=== PATIENT | female | born 1940 | race Two or more races ===

== ENCOUNTER 2021-07-05 07:24 | Day surgery (SDC) | payer OTHER | END 2021-07-05 13:00 | disposition home or self-care (01) | LOC: AMB-ENDOS 07:24 | PROVIDERS: ATTEND Colon & Rectal Surgery | DX: D12.3 Benign neoplasm of transverse colon (principal); K57.30 Diverticulosis of large intestine without perforation or abscess without bleeding ==

== ENCOUNTER 2021-09-14 09:54 | Emergency (ER) | payer OTHER ==
[~2021-09-14] VITALS: Ht 157.5 cm; Wt 59.0 kg
[~2021-09-14 09:54] MED LIST: ELIQUIS2.5 MG PO; ELIQUIS5 MG; LEVOTHYROXINE25 MCG PO; LEVOTHYROXINE75 MCG; LOSARTAN POTASS25 MG; METFORMIN HCL500 M3 PO; METFORMIN HCL500 M4; PANTOPRAZOLE SO40 MG; SIMVASTATIN40 MG; SIMVASTATIN5 MG PO; VALSARTAN-HCTZ1 EAC1; VALSARTAN160 MG PO
== END 2021-09-14 19:31 | disposition home or self-care (01) ==
LOC: ER 09:54
DX: T81.49XA Infection following a procedure, other surgical site, initial encounter (principal); L03.311 Cellulitis of abdominal wall

== ENCOUNTER 2023-01-16 14:55 | Emergency (ER) | payer OTHER ==
[~2023-01-16] VITALS: Ht 165.1 cm; Wt 77.1 kg
[2023-01-16] MEDS ORDERED: CIPRO500 MG PO (19:59)
[2023-01-16] MEDS ORDERED: PEPCID AC20 MG PO (19:59)
[2023-01-16] MEDS ORDERED: INTESTINEX680 M1 PO (19:59)
== END 2023-01-16 20:09 | disposition home or self-care (01) ==
LOC: ER 14:55
PROVIDERS: General Practice
DX: K52.9 Noninfective gastroenteritis and colitis, unspecified (principal); R10.32 Left lower quadrant pain; E11.9 Type 2 diabetes mellitus without complications; Z79.84 Long term (current) use of oral hypoglycemic drugs; I10 Essential (primary) hypertension; E03.9 Hypothyroidism, unspecified; E78.49 Other hyperlipidemia; Z93.3 Colostomy status; K57.30 Diverticulosis of large intestine without perforation or abscess without bleeding
CPT/HCPCS: 36415; 74177; 96365; 96366; 99284; J1885; J2405; J3490; J7042; Q9965

== ENCOUNTER 2023-02-05 10:57 | Inpatient (IN) | payer OTHER ==
[~2023-02-05] VITALS: Ht 154.9 cm; Wt 77.1 kg
[~2023-02-05 10:57] MED LIST changes: +CIPRO500 MG PO; +INTESTINEX680 M1 PO; +PEPCID AC20 MG PO
[2023-02-09] MEDS ORDERED: AMOX-CLAV 875-1 EAC1 PO (13:46)
[2023-02-09] MEDS ORDERED: NIFEDIPINE ER60 MG PO (13:47)
== END 2023-02-09 14:52 | disposition home or self-care (01) | DRG 392 ==
LOC: ER 10:57 → SEC-K 17:02 → MEDJ 17:02
PROVIDERS: Emergency Medicine; Internal Medicine Infectious Disease; ADMIT Internal Medicine; ATTEND Internal Medicine
PROC: BW21ZZZ Computerized Tomography (CT Scan) of Abdomen and Pelvis (ICD-10-PCS; 2023-02-05)
PROC: BF37ZZZ Magnetic Resonance Imaging (MRI) of Pancreas (ICD-10-PCS; principal; 2023-02-06)
PROC: 02HV33Z Insertion of Infusion Device into Superior Vena Cava, Percutaneous Approach (ICD-10-PCS; 2023-02-07)
DX: K52.89 Other specified noninfective gastroenteritis and colitis (principal); N17.9 Acute kidney failure, unspecified; N39.0 Urinary tract infection, site not specified; E86.0 Dehydration; I10 Essential (primary) hypertension; E03.9 Hypothyroidism, unspecified; D64.9 Anemia, unspecified; E11.9 Type 2 diabetes mellitus without complications; Z79.4 Long term (current) use of insulin; Z20.822 Contact with and (suspected) exposure to COVID-19

== ENCOUNTER 2024-05-15 08:26 | Emergency (ER) | payer OTHER ==
[~2024-05-15] VITALS: Ht 162.6 cm; Wt 95.3 kg
[~2024-05-15 08:26] MED LIST changes: +AMOX-CLAV 875-1 EAC1 PO; +NIFEDIPINE ER60 MG PO
[2024-05-15] MEDS ORDERED: 0.9 % SODIUM CHLORIDE 1,000 ML IV SCH (08:45)
[2024-05-15 09:05] LABS: HEMATOCRIT 38.2 % (36.0-45.00); HEMOGLOBIN 12.9 g/dL (12.0-15.00); MEAN CORPUSCULAR HEMOGLOBIN 31.4 pg (27.00-32.0); MEAN CORPUSCULAR HGB CONC 33.8 g/dl (32.0-36.0); PLATELET COUNT 178 K/uL (150-450); RED BLOOD COUNT 4.11 M/uL (4.00-6.00); RED CELL DISTRIBUTION WIDTH 13.4 % (11.5-14.5)
[2024-05-15 09:24] LABS: CALCIUM 9.1 mg/dL (8.5-10.1); CREATININE SERUM 1.05 mg/dL (0.55-1.02); GFR 50.3; POTASSIUM 4.55 mEq/L (3.5-5.1)
[2024-05-15 14:22] LABS: PH,URINE 6.5 (5.0-8.0); URINE APPEARANCE Cloudy; URINE BILIRRUBIN Negative (NEGATIVE); URINE BLOOD Negative; URINE COLOR Yellow; URINE GLUCOSE Negative (NEGATIVE); URINE KETONE Negative (NEGATIVE); URINE LEUKOCYTE Negative; URINE NITRATE Negative; URINE PROTEIN Negative (NEGATIVE); URINE UROBILINOGEN 0.2 E.U./dl
[2024-05-15 14:25] LABS: URINE BACTERIA 89.2 uL (0.0-1933); URINE RBC 5.1 uL (0.0-20.8)
[2024-05-15 14:28] LABS: URINE WBC 1.2 uL (0.0-23.2)
== END 2024-05-15 14:41 | disposition home or self-care (01) ==
LOC: ER 08:28
PROVIDERS: Emergency Medicine
DX: R10.9 Unspecified abdominal pain (principal); I10 Essential (primary) hypertension; E03.8 Other specified hypothyroidism; E11.9 Type 2 diabetes mellitus without complications; Z79.84 Long term (current) use of oral hypoglycemic drugs
CPT/HCPCS: 36415; 74177; 96365; 96366; 99284; J7030; Q9965